=== PATIENT | female | born 1975 | race Caucasian/White ===

== ENCOUNTER 2018-06-13 21:00 | Inpatient (IN) | payer MEDICAID ==
[2018-06-13 21:01] VITALS: BMI 37.5
[2018-06-13] MEDS ORDERED: Sodium Chloride 0.9% 1,000 ML IV ONE ×2 (21:20→22:27)
[2018-06-13 21:36] LABS: BASO % 0.4 % (0.0-2.0); EOS # 0.1 K/uL (0.0-0.7); EOS % 0.7 % (0.0-4.0); LYMPH # 1.2 K/uL (1.0-4.3); LYMPH % 14.2 % (20.0-40.0); MEAN CELL VOLUME 79.3 fL (81.0-99.0); MEAN CORPUSCULAR HEMOGLOBIN 25.3 pg (27.0-31.0); MEAN CORPUSCULAR HGB CONC 31.9 g/dL (33.0-37.0); MEAN PLATELET VOLUME 9.3 fL (7.2-11.7); MONO # 0.5 K/uL (0.0-0.8); MONO % 6.3 % (0.0-10.0); NEUT # 6.8 K/uL (1.8-7.0); NEUT % 78.4 % (50.0-75.0); NRBC % 0.2 % (0.0-2.0); RBC 6.31 Mil/uL (3.80-5.20); RED CELL DISTRIBUTION WIDTH 24.6 % (11.5-14.5); WHITE BLOOD COUNT 8.7 K/uL (4.8-10.8)
[2018-06-13] MEDS ORDERED: Sodium Chloride 0.9% 1,000 ML ONE ×2 (21:40→22:33)
[2018-06-13 21:41] LABS: HCG,QUALITATIVE URINE NEGATIVE (NEGATIVE)
[2018-06-13 21:44] LABS: SQUAMOUS EPITHIAL 3 /hpf (0-5); URINE BACTERIA OCC (<OCC); URINE BILIRUBIN NEGATIVE (NEGATIVE); URINE BLOOD 3+ (NEGATIVE); URINE CLARITY Hazy (Clear); URINE COLOR Straw (YELLOW); URINE GLUCOSE (UA) 3+ mg/dL (Normal); URINE LEUKOCYTE ESTERASE NEG Leu/uL (Negative); URINE PROTEIN NEGATIVE (NEGATIVE); URINE UROBILINOGEN NORMAL mg/dL (0.2-1.0)
[2018-06-13 22:17] LABS: ALB/GLOB RATIO 1.6 (1.0-2.1); ALBUMIN 5.3 g/dL (3.5-5.0); ALT/SGPT 36 U/L (9-52); AST/SGOT 26 U/L (14-36); BLOOD UREA NITROGEN 14 mg/dL (7-17); CALCIUM 10.2 mg/dl (8.6-10.4); GFR AFRICAN-AMERICAN > 60; GFR NON-AFRICAN AMERICAN 54; LIPASE 211 U/L (23-300)
[2018-06-13] MEDS ORDERED: (Novolin R) Insulin Human Regular 100 units/ml vial IV STA (22:27)
[2018-06-13] MEDS ORDERED: (Novolin R) Insulin Human Regular 100 units/ml vial ONE (22:33)
--- NOTE | 2018-06-13 22:43 | C.PDOC ---
Time Seen by Provider: 06/13/18 21:11 Chief Complaint (Nursing): Abdominal Pain History Per: Patient Onset/Duration Of Symptoms: Days (about 1-2 weeks), Intermittent Episodes Current Symptoms Are (Timing): Still Present Severity: Moderate Location Of Pain/Discomfort: Epigastric Radiation Of Pain To:: None Quality Of Discomfort: "Pain" Associated Symptoms: Nausea, Vomiting Exacerbating Factors: Food Additional History Per: Prior Records Past Medical History Reviewed: Historical Data, Nursing Documentation, Vital Signs Vital Signs: Last Vital Signs Temp 98.1 F 06/13/18 21:05 Pulse 113 H 06/13/18 21:05 Resp 18 06/13/18 21:05 BP 150/84 06/13/18 21:05 Pulse Ox 97 06/13/18 22:44 - Medical History PMH: Anemia, Asthma, Depression, Gall Bladder Disease, HTN, Peripheral Edema Surgical History: Endoscopy - [facility] Procedures BREAST DX PROCEDURE NEC (09/22/14) PACKED CELL TRANSFUSION (02/16/14) PERCUTAN NEEDLE BIOPSY OF BREAST (09/22/14) X-RAY NEC AND NOS (09/22/14) Family History: States: Unknown Family Hx - Social History Hx Tobacco Use: Yes Hx Alcohol Use: No Hx Substance Use: No - Immunization History Hx Tetanus Toxoid Vaccination: No Hx Influenza Vaccination: No Hx Pneumococcal Vaccination: No Review Of Systems Except As Marked, All Systems Reviewed And Found Negative. Constitutional: Positive for: Malaise. Negative for: Fever Cardiovascular: Negative for: Chest Pain Respiratory: Negative for: Shortness of Breath Gastrointestinal: Positive for: Nausea, Vomiting, Abdominal Pain. Negative for : Diarrhea, Constipation, Melena, Hematochezia, Hematemesis Genitourinary: Positive for: Frequency Musculoskeletal: Negative for: Neck Pain Skin: Negative for: Rash Neurological: Negative for: Weakness, Numbness Physical Exam - Physical Exam Appears: Non-toxic, No Acute Distress Skin: Normal Color, Warm, Dry, No Rash Head: Atraumatic, Normacephalic Eye(s): bilateral: Normal Inspection, PERRL, EOMI Oral Mucosa: Dry Neck: Normal ROM, Supple Cardiovascular: Rhythm Regular Respiratory: Normal Breath Sounds, No Accessory Muscle Use Gastrointestinal/Abdominal: Soft, Tenderness (epigastric), No Guarding, No Rebound Back: No CVA Tenderness Extremity: Normal ROM Neurological/Psych: Oriented x3, Normal Motor, Normal Sensation ED Course And Treatment - Laboratory Results Result Diagrams: 06/13/18 21:33 06/13/18 21:33 Lab Interpretation: Abnormal Interpretation Of Abnormal: Hyperglycemia Urine POC: Negative O2 Sat by Pulse Oximetry: 97 Pulse Ox Interpretation: Normal Progress - Interventions Interventions:: Observation, Intravenous fluid - Medications Administered Intravenous: Antiemetic, H-2 johanna, Other (Insulin) - Data Reviewed Data Reviewed: Lab, Old records - Patient Status Patient status: Partially improved - Continuity of Care Discussed patient case with:: Patient, Family-HIPPA compliant, ED Nurse, On- call PMD-pt unassigned Disposition Discussed With : Cielo Altamirano Comment: She accepted pt on her service. Doctor Will See Patient In The: Hospital Counseled Patient/Family Regarding: Studies Performed, Diagnosis - Disposition Disposition: HOSPITALIZED Disposition Time: 22:47 Condition: FAIR - Clinical Impression Clinical Impression: Diabetes mellitus, new onset, Hyperglycemia, Epigastric abdominal pain, Nausea & vomiting
[2018-06-14] MEDS: Sodium Chloride 0.9% 1,000 ML IV SCH ×4 (00:50→21:41)
[2018-06-14] MEDS ORDERED: Sodium Chloride 0.9% 1,000 ML IV SCH (01:00)
[2018-06-14 01:22] VITALS: RESP 20
[2018-06-14] MEDS ORDERED: Pneumococcal 23-Valent Vaccine IM ONE (01:38)
[2018-06-14] MEDS: (Novolog) Insulin Aspart, Recombinant 100 u/ml 10 ml vial SC SCH ×4 (08:09→21:40)
[2018-06-14] MEDS: Enoxaparin 30 mg Syringe SC SCH (09:31)
--- NOTE | 2018-06-14 13:39 | US ---
Date of service: 06/13/2018 HISTORY: Epigastric pain, r/o cholecystitis COMPARISON: None. TECHNIQUE: Sonographic evaluation of the right upper quadrant of the abdomen. FINDINGS: LIVER: Measures 21.7 cm in length. Diffusely increased echogenicity of the liver parenchyma. No mass. No intrahepatic bile duct dilatation. GALLBLADDER: Unremarkable. No gallstones. COMMON BILE DUCT: Measures 3.9 mm. No stones. No dilatation. PANCREAS: Pancreas is completely obscured by overlying bowel gas. RIGHT KIDNEY: Measures 12.0 x 4.5 x 5.7 cm in length. There is a borderline calculus at the midpole right kidney but there is no associated shadowing related. This could reflect perisinus fat instead. No obstructive uropathy or discrete cyst or solid mass related. AORTA: No aneurysmal dilatation. IVC: Unremarkable. OTHER FINDINGS: None . IMPRESSION: Enlarged echogenic liver is appreciated likely reflecting diffuse fatty infiltration. Pancreas is completely obscured by overlying bowel gas and is not evaluated in this examination. Borderline nonobstructive solitary intrarenal calculus midpole right kidney though this could also reflect perisinus fat. CT is available for follow-up if clinically warranted. Concordant preliminary report from [facility], 06/14/2018.
[2018-06-14] MEDS ORDERED: Insulin Detemir 100 units/ml Vial (Levemir) SC SCH (22:00)
--- NOTE | 2018-06-15 03:41 | HP ---
date 06/14/18 Copied To: Cielo Altamirano MD Attending MD: Cielo Altamirano MD CHIEF COMPLAINT: Abdominal pain, nausea, and vomiting. HISTORY OF PRESENT ILLNESS: Ms. Miranda Pereira is a 42-year-old female, was noncompliant, overweight, came with abdominal pain, but wanted to eat, intermittent episodes of nausea and vomiting, still has epigastric pain. Exacerbating factor is food. No prior record. We admitted the patient and came to know that the patient has new onset of diabetes mellitus. No fever. No chills. No shortness of breath. No hematuria. No hematochezia. PAST MEDICAL HISTORY: Anemia, asthma, depression, gallbladder disease, hypertension, peripheral edema. PAST SURGICAL HISTORY: Endoscopy. ALLERGIES: THE PATIENT IS ALLERGIC TO THE FISH AND PEANUTS. FAMILY HISTORY: Father and mother noncontributory. HABITS: Smoking, yes. No alcohol. No substance abuse. REVIEW OF SYSTEMS: The patient was seen and examined at bedside. Looking comfortable. Feeling malaise. No fever. No chills. No chest pain. No shortness of breath. She has nausea, vomiting, abdominal pain, negative for diarrhea. No melena, hematuria, or hematochezia. Has a history of frequency. No neck pain. No rash. PHYSICAL EXAMINATION: VITAL SIGNS: Temperature 98.1, pulse 113, respiratory rate 18, blood pressure 115/84, pulse oximetry 97. HEENT: Head is normocephalic and atraumatic. Eyes, PERRLA. EOMs intact. Conjunctivae clear. Nares patent. Mucous membranes moist. NECK: Supple. No carotid bruits. No JVD or thyromegaly. CHEST: Bilaterally symmetrical. HEART: S1 and S2 positive. LUNGS: Clear to auscultation. ABDOMEN: Soft. Bowel sounds present. No organomegaly. EXTREMITIES: No edema. No cyanosis. NEUROLOGIC: The patient is awake, alert. Moving all four extremities. No focal deficits. LABORATORY DATA: White blood cells 8.7, hemoglobin 16, hematocrit 50, platelets 215. Sodium 131, potassium 4.1, BUN 40, creatinine 1.1, glucose 658. ASSESSMENT AND PLAN: Ms. Miranda Pereira is a 42-year-old lady with hyponatremia, hypochloremia, hyperglycemia, obesity, abdominal pain, nausea, and vomiting. New onset of diabetes mellitus. We started the patient on IV fluid, insulin given. Gallbladder ultrasound done. Enlarged echogenic liver is appreciated, likely reflecting diffuse fatty infiltration. Pancreas is completely obscured by overlying bowel gas and is not evaluated in this examination. Borderline nonobstructive solitary intrarenal calculus, midpole, right kidney, though this could also reflect the patient's fat. CT is valuable for followup if clinically indicated. We will consult with Dr. Loly Martino, chemist assistant, need diabetic education. We will call GI consult. Restarted glimepiride, metformin, insulin sliding scale, Lovenox, Pepcid, GI prophylaxis, normal saline given. Gastrointestinal and deep venous thrombosis prophylaxis. Repeat labs. We will follow. Cielo Altamirano MD MTDZain
[2018-06-15] MEDS: Sodium Chloride 0.9% 1,000 ML IV SCH (06:09)
--- NOTE | 2018-06-15 06:39 | CON ---
Copied To: Janae Martino MD Attending MD: Janae Martino MD DATE: 06/14/2018 ENDOCRINOLOGY CONSULT LOCATION: Room 354. HISTORY OF PRESENT ILLNESS: This is a 42-year-old female with known history of hypertension, presenting here with progressively worsening polyuria, nocturia, polydipsia, and recent generalized, body weakness who has been evaluated for new onset of uncontrolled type 2 insulin-requiring diabetes and has been referred now for diagnostic evaluation and management. History of hypertension and dyslipidemia, on medications at this time, history of chronic anxiety which was treated with medications. She also has chronic anemia. No obvious ulcers. Chronic bronchial asthma. Also know history of disease, details not known at this time. She also has developed sudden onset of upper abdominal pain, especially over the epigastric area, in the last two to three days prior to admission with supervening nausea, dyspepsia, and vomiting. FAMILY HISTORY: Significant for diabetes and hypertension. SOCIAL HISTORY: The patient has a supportive family a day for some years now. REVIEW OF SYSTEMS: Admits to generalized body weakness with easy fatigability and tiredness and suboptimal energy levels, also admits to episodic dizziness and lightheadedness, worse on the day of admission with visual blurring and bifrontal headache. No chest pain, palpitations, or PND. Her oral intake has been variable with nausea, dyspepsia, and supervening upper abdominal pain localized to the epigastric area. She also admits to nausea, dyspepsia, and episodic vomiting episodes. No polyuria, nocturia, and polydipsia since the time of admission. PHYSICAL EXAMINATION: GENERAL: This is an obese female in no apparent distress. VITAL SIGNS: Blood pressure of 140/80, pulse of 70 beats per minute and regular, temperature , respirations 20. Height of 5 feet and 4 inches, and weight is 227 pounds. HEENT: Head is normocephalic. Eyes anicteric with pink conjunctivae. Funduscopy not possible at this time. Ears, nose, and throat are otherwise normal. NECK: Supple. Thyroid gland is normal size. No carotid bruits and cervical adenopathy. CARDIOPULMONARY: Some adynamic precordium. S1 and S2 are rapid and regular. LUNGS: Clear to auscultation. ABDOMEN: Obese, soft with positive bowel sounds. EXTREMITIES: No peripheral edema. Pulses are +2 bilaterally. LABORATORY DATA: Her chemistries initially showed a BUN of 14, sodium 131, potassium 4.4, chloride 87, CO2 of 21, glucose 650, and creatinine 1.1. ASSESSMENT AND PLAN: type 2 insulin-requiring diabetes and is now being referred for diabetic evaluation and management. She also has underlying morbid obesity which has contributed recent gastrointestinal related symptoms with underlying cholelithiasis with superimposed acute cholecystitis with ultrasound report pending at this time. Also discussed with the patient at this time we will start her right away on a basal insulin with Lantus to be given as 20 units subcu at bedtime daily . We will continue the low dose correction scale using regular insulin as given. We will also add Amaryl given as 4 mg b.i.d. before meals, metformin given as 500 mg b.i.d. as previous as noted. We will obtain serial chemistries and supplement accordingly as needed. We will initiate diabetic education including insulin self-administration and glucose monitoring. We will also consult a dietitian for diabetic low fat diet with weight loss efforts undertaken by us. We will follow and advise accordingly. Janae Martino MD
[2018-06-15 08:04] LABS: MEAN CELL VOLUME 78.7 fL (81.0-99.0); MEAN CORPUSCULAR HEMOGLOBIN 25.9 pg (27.0-31.0); MEAN CORPUSCULAR HGB CONC 32.9 g/dL (33.0-37.0); MEAN PLATELET VOLUME 9.1 fL (7.2-11.7); RBC 5.3 Mil/uL (3.80-5.20); RED CELL DISTRIBUTION WIDTH 24.8 % (11.5-14.5)
[2018-06-15 08:09] LABS: HEMOGLOBIN 13.7 g/dL (11.0-16.0); WHITE BLOOD COUNT 4.3 K/uL (4.8-10.8)
[2018-06-15 08:10] LABS: ALB/GLOB RATIO 1.4 (1.0-2.1); ALT/SGPT 34 U/L (9-52); AST/SGOT 25 U/L (14-36); BLOOD UREA NITROGEN 11 mg/dL (7-17); CALCIUM 9.1 mg/dl (8.6-10.4); GFR AFRICAN-AMERICAN > 60; GFR NON-AFRICAN AMERICAN > 60; HDL CHOLESTEROL 22 mg/dL (30-70); LIPASE 141 U/L (23-300)
[2018-06-15] MEDS: (Novolog) Insulin Aspart, Recombinant 100 u/ml 10 ml vial SC SCH ×4 (08:10→21:36)
[2018-06-15 08:19] LABS: LDL CHOLESTEROL 102 mg/dL (0-129)
[2018-06-15] MEDS: Enoxaparin 30 mg Syringe SC SCH (09:15)
[2018-06-15] MEDS ORDERED: Bisacodyl 5mg EC Tab PO ONE (11:30)
--- NOTE | 2018-06-15 14:55 | CP.PCM.CON ---
<Lou Shepard - Last Filed: 06/15/18 15:00> History of Present Illness - History of Present Illness History of Present Illness: PGY5 GI Consult Miranda Pereira is a 42F w/ hx of Anemia, Depression, Peripheral Edema who presents to the Er with complaints of epigastric pain and generalized weakness. Pt states that the pain was sudden and non-radiating. It peaked at 10 out of 10. She described it as sharp. Pt also noted generalized weakness and malaise. She states that she was taking all of her med as prescribed. She denied any aggrvating or aleviating factors. She noted and she recently had an EGD 1 month prior at [facility] and was diagnosed with PUD and was started on PPI. She is supposed to undergo a repeat EGD in 1 month. She noted resolution of her abd pain. Last BM was normal and 1 month prior. Denies any prior colonoscopy. PMhx:Anemia, Depression, Peripheral Edema PSHx: total hysterectomy Social Hx: + smoking; Denies any ETOH and illicit Family Hx: reviewed, denies any GI related Ca ROS: 12 point ROS conducted, neg other than above Past Patient History - Infectious Disease Hx of Infectious Diseases: None - Past Medical History & Family History Past Medical History?: Yes - Past Social History Smoking Status: Current Some Days Smoker - CARDIAC Hx Hypertension: Yes Hx Peripheral Edema: Yes - PULMONARY Hx Asthma: Yes - HEENT Hx HEENT Problems: No - RENAL Hx Chronic Kidney Disease: No - ENDOCRINE/METABOLIC Hx Endocrine Disorders: No - HEMATOLOGICAL/ONCOLOGICAL Hx Anemia: Yes - INTEGUMENTARY Hx Dermatological Problems: No - GASTROINTESTINAL Hx Gall Bladder Disease: Yes - PSYCHIATRIC Hx Depression: Yes Hx Substance Use: No - SURGICAL HISTORY Hx Surgeries: Yes (Breast biopsy) Other/Comment: fibriod surgery - ANESTHESIA Hx Anesthesia: Yes Hx Anesthesia Reactions: No Hx Malignant Hyperthermia: No Meds Allergies/Adverse Reactions: Allergies Allergy/AdvReac Type Severity Reaction Status Date / Time FISH Allergy Intermediate SWELLING Verified 01/26/16 09:24 peanut Allergy Intermediate SWELLING Verified 01/26/16 09:24 - Medications Medications: Current Medications Docusate Sodium (Colace) 100 mg PO BID [facility] Last Admin: 06/15/18 11:33 Dose: 100 mg Enoxaparin Sodium (Lovenox) 40 mg SC DAILY [facility] Glimepiride (Amaryl) 4 mg PO ACBD [facility] Last Admin: 06/15/18 08:08 Dose: 4 mg Sodium Chloride (Sodium Chloride 0.9%) 1,000 mls @ 100 mls/hr IV .Q10H [facility] Last Admin: 06/15/18 06:09 Dose: 100 mls/hr Insulin Aspart (Novolog) 0 unit SC [facility] PRN Reason: Protocol Last Admin: 06/15/18 11:38 Dose: 2 units Insulin Detemir (Levemir) 20 unit SC HS [facility] Last Admin: 06/14/18 21:39 Dose: 20 units Metformin HCl (Glucophage) 500 mg PO BIDCC [facility] Last Admin: 06/15/18 08:09 Dose: 500 mg Metoclopramide HCl (Reglan) 10 mg IVP [facility] Last Admin: 06/15/18 11:34 Dose: 10 mg Pantoprazole Sodium (Protonix Inj) 40 mg IVP DAILY [facility] Last Admin: 06/15/18 11:35 Dose: 40 mg Pneumococcal Polyvalent Vaccine (Pneumovax 23 Vaccine) 0.5 ml IM .ONCE ONE Stop: 06/16/18 10:01 Physical Exam - Constitutional Appears: Well, No Acute Distress - Head Exam Head Exam: ATRAUMATIC, NORMOCEPHALIC - Eye Exam Eye Exam: Normal appearance - ENT Exam ENT Exam: Mucous Membranes Moist, Normal Exam - Neck Exam Neck exam: Positive for: Normal Inspection - Respiratory Exam Respiratory Exam: Clear to Auscultation Bilateral, NORMAL BREATHING PATTERN. absent: Wheezes, Respiratory Distress - Cardiovascular Exam Cardiovascular Exam: REGULAR RHYTHM, +S1, +S2 - GI/Abdominal Exam GI & Abdominal Exam: Normal Bowel Sounds. absent: Guarding, Organomegaly, Rebound, Rigid, Soft - Extremities Exam Extremities exam: Negative for: joint swelling, pedal edema - Neurological Exam Neurological exam: Alert, Oriented x3 - Psychiatric Exam Psychiatric exam: Normal Affect, Normal Mood - Skin Skin Exam: Dry, Intact, Normal Color, Warm Results - Vital Signs Recent Vital Signs: Last Vital Signs Temp 98.5 F 06/15/18 07:35 Pulse 100 H 06/15/18 07:35 Resp 20 06/15/18 07:35 BP 126/89 06/15/18 07:35 Pulse Ox 96 06/15/18 07:35 - Labs Result Diagrams: 06/15/18 07:42 06/15/18 07:42 Labs: Laboratory Results - last 24 hr 06/14/18 06/14/18 06/14/18 00:31 07:08 11:00 WBC RBC Hgb Hct MCV MCH MCHC RDW Plt Count MPV Sodium Potassium Chloride Carbon Dioxide Anion Gap BUN Creatinine Est GFR ( Amer) Est GFR (Non-Af Amer) POC Glucose (mg/dL) 375 H 334 H 376 H Random Glucose Hemoglobin A1c Calcium Phosphorus Magnesium Total Bilirubin AST ALT Alkaline Phosphatase Total Protein Albumin Globulin Albumin/Globulin Ratio Triglycerides Cholesterol LDL Cholesterol Direct HDL Cholesterol Lipase TSH 3rd Generation 06/14/18 06/14/18 06/15/18 16:19 21:16 07:08 WBC RBC Hgb Hct MCV MCH MCHC RDW Plt Count MPV Sodium Potassium Chloride Carbon Dioxide Anion Gap BUN Creatinine Est GFR ( Amer) Est GFR (Non-Af Amer) POC Glucose (mg/dL) 360 H 344 H 224 H Random Glucose Hemoglobin A1c Calcium Phosphorus Magnesium Total Bilirubin AST ALT Alkaline Phosphatase Total Protein Albumin Globulin Albumin/Globulin Ratio Triglycerides Cholesterol LDL Cholesterol Direct HDL Cholesterol Lipase TSH 3rd Generation 06/15/18 06/15/18 06/15/18 07:42 07:42 07:42 WBC 4.3 L D RBC 5.30 H Hgb 13.7 D Hct 41.7 MCV 78.7 L MCH 25.9 L MCHC 32.9 L RDW 24.8 H Plt Count 144 MPV 9.1 Sodium 139 Potassium 3.6 Chloride 103 Carbon Dioxide 25 Anion Gap 15 BUN 11 Creatinine 0.7 Est GFR ( Amer) > 60 Est GFR (Non-Af Amer) > 60 POC Glucose (mg/dL) Random Glucose 222 H Hemoglobin A1c 10.7 H Calcium 9.1 Phosphorus 2.3 L Magnesium 1.8 Total Bilirubin 0.7 AST 25 ALT 34 Alkaline Phosphatase 90 Total Protein 6.7 Albumin 4.0 Globulin 2.8 Albumin/Globulin Ratio 1.4 Triglycerides 391 H Cholesterol 167 LDL Cholesterol Direct 102 HDL Cholesterol 22 L Lipase 141 TSH 3rd Generation 1.08 06/15/18 11:07 WBC RBC Hgb Hct MCV MCH MCHC RDW Plt Count MPV Sodium Potassium Chloride Carbon Dioxide Anion Gap BUN Creatinine Est GFR ( Amer) Est GFR (Non-Af Amer) POC Glucose (mg/dL) 202 H Random Glucose Hemoglobin A1c Calcium Phosphorus Magnesium Total Bilirubin AST ALT Alkaline Phosphatase Total Protein Albumin Globulin Albumin/Globulin Ratio Triglycerides Cholesterol LDL Cholesterol Direct HDL Cholesterol Lipase TSH 3rd Generation Assessment & Plan - Assessment and Plan (Free Text) Assessment: Miranda Pereira is a 42F w/ hx of Anemia, Depression, Peripheral Edema who presents to the Er with complaints of epigastric pain and generalized weakness Abd pain PUD Uncontrolled DM Plan: -continue protonix PO 40mg BID -diet as tolerated -repeat EGD as per primary GI -Glucose management as per Endo -rest of care as per primary team D/W Dr. Hernandez <Faraz Hernandez - Last Filed: 06/16/18 08:52> Meds - Medications Medications: Current Medications Docusate Sodium (Colace) 100 mg PO BID [facility] Last Admin: 06/15/18 17:54 Dose: 100 mg Enoxaparin Sodium (Lovenox) 40 mg SC DAILY [facility] Glimepiride (Amaryl) 4 mg PO ACBD [facility] Last Admin: 06/16/18 08:29 Dose: 4 mg Sodium Chloride (Sodium Chloride 0.9%) 1,000 mls @ 100 mls/hr IV .Q10H [facility] Last Admin: 06/16/18 02:56 Dose: 100 mls/hr Insulin Aspart (Novolog) 0 unit SC [facility] PRN Reason: Protocol Last Admin: 06/16/18 08:28 Dose: 1 units Insulin Detemir (Levemir) 24 unit SC HS [facility] Last Admin: 06/15/18 21:33 Dose: 24 units Metformin HCl (Glucophage) 850 mg PO BIDCC [facility] Last Admin: 06/16/18 08:29 Dose: 850 mg Metoclopramide HCl (Reglan) 10 mg IVP ACHS [facility] Last Admin: 06/15/18 16:31 Dose: 10 mg Pantoprazole Sodium (Protonix Inj) 40 mg IVP DAILY [facility] Last Admin: 06/15/18 11:35 Dose: 40 mg Pneumococcal Polyvalent Vaccine (Pneumovax 23 Vaccine) 0.5 ml IM .ONCE ONE Stop: 06/16/18 10:01 Potassium Chloride (K-Dur 20 Meq Er Tab) 20 meq PO ONCE ONE Stop: 06/16/18 10:01 Results - Vital Signs Recent Vital Signs: Last Vital Signs Temp 98.5 F 06/16/18 07:50 Pulse 86 08/07/18 07:50 Resp 20 06/16/18 07:50 BP 142/85 06/16/18 07:50 Pulse Ox 95 06/16/18 07:50 - Labs Result Diagrams: 06/15/18 07:42 06/16/18 06:30 Labs: Laboratory Results - last 24 hr 06/14/18 06/14/18 06/14/18 00:31 07:08 11:00 Sodium Potassium Chloride Carbon Dioxide Anion Gap BUN Creatinine Est GFR ( Amer) Est GFR (Non-Af Amer) POC Glucose (mg/dL) 375 H 334 H 376 H Random Glucose Calcium Total Bilirubin AST ALT Alkaline Phosphatase Total Protein Albumin Globulin Albumin/Globulin Ratio 06/14/18 06/14/18 06/15/18 16:19 21:16 07:08 Sodium Potassium Chloride Carbon Dioxide Anion Gap BUN Creatinine Est GFR ( Amer) Est GFR (Non-Af Amer) POC Glucose (mg/dL) 360 H 344 H 224 H Random Glucose Calcium Total Bilirubin AST ALT Alkaline Phosphatase Total Protein Albumin Globulin Albumin/Globulin Ratio 06/15/18 06/16/18 11:07 06:30 Sodium 140 Potassium 3.4 L Chloride 106 Carbon Dioxide 22 Anion Gap 16 BUN 9 Creatinine 0.7 Est GFR ( Amer) > 60 Est GFR (Non-Af Amer) > 60 POC Glucose (mg/dL) 202 H Random Glucose 198 H Calcium 8.8 Total Bilirubin 0.4 AST 30 ALT 34 Alkaline Phosphatase 86 Total Protein 6.3 Albumin 3.6 Globulin 2.7 Albumin/Globulin Ratio 1.3 Attending/Attestation - Attestation I have personally seen and examined this patient.: Yes I have fully participated in the care of the patient.: Yes I have reviewed all pertinent clinical information: Yes Notes (Text): 06/16/18 08:51 This is a 42F w/ hx of Anemia, Depression, Peripheral Edema who presents to the Er with complaints of epigastric pain and generalized weakness with uncontrolled DM likely DKA. Pain due to above now resoleved. Correct DM. Strict glucose control. Diet as tolerated. Small frequent meals low fat. Rest of care as per primary team
--- NOTE | 2018-06-15 18:41 | PN ---
Copied To: Janae Martino MD Attending MD: Janae Martino MD DATE: 06/15/2018 ENDO FOLLOW-UP NOTE LOCATION: Room 352. SUBJECTIVE: This is a 42-year-old female with recent onset of type 2 insulin-requiring diabetes, now being followed closely for metabolic management. Her glycemic levels are fluctuating, but improved as noted overnight and the glucose values have ranged from 202 to 224 mg/dL. However, it was 344 at bedtime last night. LABORATORY DATA: The latest chemistry showed a BUN of 11, sodium 139, potassium 3.6, chloride 103, CO2 of 25, glucose 222, and creatinine 0.7. Her hemoglobin A1c is extremely elevated at 10.7% and the subsequent glucose is 202 mg/dL. ASSESSMENT AND PLAN: So, at this time, we will continue the dual oral hypoglycemic therapy given as Amaryl 4 mg b.i.d. before meals and increase her metformin to 850 mg b.i.d. with meals as given. We will titrate her basal insulin given as Levemir to a higher dose of 24 units subcu at bedtime daily as given. We will titrate incrementally as indicated to optimize metabolic control. We will obtain serial chemistries and supplement accordingly as needed. We will follow with you. Janae Martino MD
[2018-06-15] MEDS ORDERED: Insulin Detemir 100 units/ml Vial (Levemir) SC SCH (22:00)
[2018-06-16] MEDS: Sodium Chloride 0.9% 1,000 ML IV SCH (02:56)
[2018-06-16 07:27] LABS: ALB/GLOB RATIO 1.3 (1.0-2.1); ALBUMIN 3.6 g/dL (3.5-5.0); ALT/SGPT 34 U/L (9-52); AST/SGOT 30 U/L (14-36); BLOOD UREA NITROGEN 9 mg/dL (7-17); CALCIUM 8.8 mg/dl (8.6-10.4); GFR AFRICAN-AMERICAN > 60; GFR NON-AFRICAN AMERICAN > 60
[2018-06-16] MEDS: (Novolog) Insulin Aspart, Recombinant 100 u/ml 10 ml vial SC SCH ×3 (08:28→16:41)
[2018-06-16] MEDS ORDERED: Enoxaparin 40 mg Syringe SC SCH (10:00)
[2018-06-16] MEDS ORDERED: Pneumococcal 23-Valent Vaccine IM ONE (10:00)
[2018-06-16] MEDS ORDERED: Potassium Chloride 20 mEq ER Tab PO ONE (10:00)
[2018-06-16 16:01] VITALS: BP 132/87; PULSE 101; TEMP 98.3; O2SAT 98
--- NOTE | 2018-06-16 16:28 | CP.PCM.PN ---
Subjective - Date & Time of Evaluation Date of Evaluation: 06/16/18 Time of Evaluation: 16:29 - Subjective Subjective: Alert, awake, no sob or chest pains. Objective - Vital Signs/Intake and Output Vital Signs (last 24 hours): Temp Pulse Resp BP Pulse Ox 98.3 F 101 H 20 132/87 98 06/16/18 15:30 06/16/18 15:30 06/16/18 15:30 06/16/18 15:30 06/16/18 15:30 Intake and Output: 06/16/18 06/16/18 06:59 18:59 Intake Total 1800 Balance 1800 - Medications Medications: Current Medications Docusate Sodium (Colace) 100 mg PO BID [facility] Last Admin: 06/16/18 10:48 Dose: 100 mg Enoxaparin Sodium (Lovenox) 40 mg SC DAILY [facility] Last Admin: 06/16/18 10:47 Dose: 40 mg Glimepiride (Amaryl) 4 mg PO ACBD [facility] Last Admin: 06/16/18 08:29 Dose: 4 mg Insulin Aspart (Novolog) 0 unit SC [facility] PRN Reason: Protocol Last Admin: 06/16/18 12:21 Dose: 3 units Insulin Detemir (Levemir) 24 unit SC HS [facility] Last Admin: 06/15/18 21:33 Dose: 24 units Metformin HCl (Glucophage) 850 mg PO BIDCC [facility] Last Admin: 06/16/18 08:29 Dose: 850 mg Metoclopramide HCl (Reglan) 10 mg IVP [facility] Last Admin: 06/16/18 12:30 Dose: 10 mg Pantoprazole Sodium (Protonix Inj) 40 mg IVP DAILY [facility] Last Admin: 06/16/18 10:48 Dose: 40 mg - Labs Labs: 06/15/18 07:42 06/16/18 06:30 Assessment and Plan - Assessment and Plan (Free Text) Assessment: 42 year old female newly diagnosed with IDDM, seen and examined. Alert and orientedx3, denies nausea, vomiting or distress. Started on levemir and is trained by the nurses prior to discharge home. Discussed with DR Martino and DR Altamirano, plan to discharge home today. Advised to follow up with price accuracy supervisor in 1 week. Advised to monitor blood sugar closely, regular exercise and diet watch.
--- NOTE | 2018-06-16 19:39 | PN ---
Copied To: Janae Martino MD Attending MD: Janae Martino MD DATE: 06/16/2018 ENDO FOLLOWUP NOTE LOCATION: In room 352. SUBJECTIVE: This is a 42-year-old female with recent uncontrolled type 2 insulin-requiring diabetes, now being followed closely for metabolic management. Her glycemic levels are fluctuating, but much improved at this time and the overnight glucose have ranged from 189 to 258 mg/dL. LABORATORY DATA: Her latest chemistry showed a BUN of 9, sodium 140, potassium 3.4, chloride 106, CO2 of 22, glucose 198, and creatinine 0.7. ASSESSMENT AND PLAN: So, at this time, we will modify once again her basal insulin and actually increase the Levemir to 24 units subcutaneously at bedtime daily, to start tonight. We will continue her dual oral hypoglycemic therapy given as metformin at 850 mg b.i.d. with Amaryl given as 4 mg b.i.d. before meals as ordered. Would highly benefit with additional oral hypoglycemic therapy given as outpatient such as several medications under the so called SGLT2 inhibitors such as Farxiga or Jardiance, which would promote glucosuria and also eventual weight loss. These medications are not available in our hospital formulary as noted. We will obtain serial chemistries and supplement accordingly as needed. We will follow. Janae Martino MD
--- NOTE | 2018-06-17 15:01 | PN ---
Copied To: Cielo Altamirano MD Attending MD: Cielo Altamirano MD DATE: 06/15/2018 SUBJECTIVE: The patient is a 42-year-old female. The patient was seen and examined at the bedside, looking comfortable. No nausea or vomiting. No fever. No chills. No headache. No dizziness. PHYSICAL EXAMINATION: GENERAL: Not in acute distress. Awake, alert, oriented x3. VITAL SIGNS: Temperature 98.5, pulse 100, respiratory rate 20, blood pressure 120/80 , pulse oximetry 96%. HEENT: Head normocephalic, atraumatic. Eyes, PERRLA. Extraocular muscles are intact. Conjunctivae pink. Nose patent. Mucous membranes are moist. NECK: Supple. No carotid bruits. No JVD or thyromegaly. CHEST: Bilaterally symmetrical. HEART: S1 and S2 positive. LUNGS: Clear to auscultation. ABDOMEN: Soft. Bowel sounds present. No organomegaly. EXTREMITIES: No edema. No cyanosis. NEUROLOGICAL: The patient is awake, alert, moving all four extremities. No focal deficit. LABORATORY DATA: White blood cell 4.8, hemoglobin 13.7, hematocrit 41.7, platelets 144. Sodium 113, potassium 3.6, BUN 11, creatinine 0.7, glucose 222. ASSESSMENT AND PLAN: Ms. Kelli Jean is a 42-year-old lady with leukopenia, hyperglycemia, depression, came with gastric pain and generalized weakness, uncontrolled diabetes mellitus. The patient is on Protonix. Diet as tolerated. Repeat esophagogastroduodenoscopy as per primary hand edge bander. 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 History of depression. Almost diabetic ketoacidosis, good glucose control. Some more frequent meals with low fat. Gastrointestinal and deep vein thrombosis prophylaxis. Repeat labs. Cielo Altamirano MD MTDD
== END 2018-06-16 19:04 | disposition home or self-care (01) | DRG 294 ==
LOC: C.ER 21:00 → C.9E 22:48 → C.3T 22:48 → OBSVTOIN 06-15 18:00
PROVIDERS: ADMIT Internal Medicine; ATTEND Internal Medicine
DX: E11.10 Type 2 diabetes mellitus with ketoacidosis without coma (principal); E87.1 Hypo-osmolality and hyponatremia; E87.8 Other disorders of electrolyte and fluid balance, not elsewhere classified; K27.9 Peptic ulcer, site unspecified, unspecified as acute or chronic, without hemorrhage or perforation; D64.9 Anemia, unspecified; E78.5 Hyperlipidemia, unspecified; I10 Essential (primary) hypertension; J45.909 Unspecified asthma, uncomplicated; K76.0 Fatty (change of) liver, not elsewhere classified; N20.0 Calculus of kidney; E66.9 Obesity, unspecified; F17.210 Nicotine dependence, cigarettes, uncomplicated; Z79.4 Long term (current) use of insulin; Z91.19 Patient's noncompliance with other medical treatment and regimen; Z90.710 Acquired absence of both cervix and uterus